=== PATIENT | female | born 1970 | race Caucasian/White ===

== ENCOUNTER 2016-12-09 23:59 | Emergency (ER) | payer OTHER ==
[~2016-12-09 23:59] MED LIST: ALDACTONE PO; ALDACTONE25 MG PO; ASPIRIN81 MG PO; ATORVASTATIN CA80 MG PO; CARVEDILOL12.5 MG PO; CLOPIDOGREL75 MG PO; COREG6.25 MG PO; LASIX PO; LASIX20 MG PO; LIPITOR80 MG PO; LISINOPRIL1 GM PO; LISINOPRIL5 MG PO; NITROGLYGERIN0.4 MG SL; NO MEDICATIONS; PLAVIX PO; SPIRIVA18 MCG INH; ZESTRIL5 MG PO
== END 2016-12-10 02:45 | disposition home or self-care (01) ==
LOC: CED 23:59
DX: Z76.0 Encounter for issue of repeat prescription (principal); I50.9 Heart failure, unspecified; I10 Essential (primary) hypertension; J44.9 Chronic obstructive pulmonary disease, unspecified; F17.210 Nicotine dependence, cigarettes, uncomplicated
CPT/HCPCS: 99282